=== PATIENT | male | born 1965 | race Caucasian/White ===

== ENCOUNTER 2021-05-22 20:40 | Emergency (ER) | payer OTHER ==
[2021-05-22 22:35] LABS: RED BLOOD COUNT 2.98 M/UL (4.20-5.50); WHITE BLOOD COUNT 4.7 K/UL (4.5-11.0)
[2021-05-22 23:11] LABS: BUN/CREATININE RATIO 6 (0-10)
[2021-05-22] MEDS ORDERED: ROXICODONE5 MG PO (23:44)
[2021-05-22] MEDS ORDERED: LASIX40 MG PO (23:44)
[2021-05-24 10:12] LABS: HBSAG SCREEN Negative (Negative); HEP A AB, IGM Negative (Negative); HEP B CORE AB, IGM Negative (Negative); HEP C VIRUS AB 0.4 (0.0-0.9)
== END 2021-05-23 03:10 | disposition home or self-care (01) ==
LOC: ER1 20:40
PROVIDERS: Physician Assistant
DX: R18.8 Other ascites (principal); R10.9 Unspecified abdominal pain
CPT/HCPCS: 74018; 80053; 80074; 80307; 81001; 82150; 82550; 82553; 83605; 83690; 83880; 84484; 85025; 85610; 85730; 87086; 99284

== ENCOUNTER 2021-06-16 09:47 | Emergency (ER) | payer OTHER ==
[~2021-06-16 09:47] MED LIST: LASIX40 MG PO; ROXICODONE5 MG PO
== END 2021-06-16 11:59 | disposition left against medical advice (07) ==
LOC: ER1 09:47
DX: Z53.21 Procedure and treatment not carried out due to patient leaving prior to being seen by health care provider (principal)

== ENCOUNTER → 2021-06-25 | Outpatient (CLI) | payer OTHER ==
[2021-06-25 11:11] LABS: BUN/CREATININE RATIO 5 (0-10)
[2021-06-26 08:13] LABS: HBSAG SCREEN Negative (Negative); HEP A AB, IGM Negative (Negative); HEP B CORE AB, IGM Negative (Negative); HEP C VIRUS AB 0.2 (0.0-0.9)
[2021-06-26 11:13] LABS: ALPHA-1-ANTITRYPSIN, SERUM 150 mg/dL (101-187)
[2021-06-26 14:13] LABS: MITOCHONDRIAL (M2) ANTIBODY <20.0 Units (0.0-20.0)
== END ==
LOC: OPSV 09:46
PROVIDERS: Internal Medicine Gastroenterology
DX: K74.60 Unspecified cirrhosis of liver (principal); R18.8 Other ascites
CPT/HCPCS: 36415; 80048; 80074; 80076; 82103; 82728; 83540; 83550; 86038

== ENCOUNTER → 2021-07-29 | Outpatient (CLI) | payer OTHER | LOC: LAB 10:59 | DX: R94.5 Abnormal results of liver function studies (principal) | CPT/HCPCS: 36415; 81256 ==